=== PATIENT | male | born 1980 | race Caucasian/White ===

== ENCOUNTER 2020-08-28 02:39 | Emergency (ER) | payer OTHER ==
[2020-08-28 03:00] LABS: HEMOGLOBIN 16.8 gm/dl (14.0-17.5); RED BLOOD COUNT 5.29 M/UL (4.20-5.50); WHITE BLOOD COUNT 11.8 K/UL (4.5-11.0)
[2020-08-28 03:29] LABS: BUN/CREATININE RATIO 14 (0-10)
[2020-08-28] MEDS ORDERED: CEPHALEXIN500 M1 PO (05:53)
[2020-08-28] MEDS ORDERED: HYDROCODON-ACE1 EAC4 PO (05:53)
== END 2020-08-28 06:07 | disposition home or self-care (01) ==
LOC: ER1 02:39
PROVIDERS: Student in an Organized Health Care Education/Training Program
DX: S31.139A Puncture wound of abdominal wall without foreign body, unspecified quadrant without penetration into peritoneal cavity, initial encounter (principal); S81.832A Puncture wound without foreign body, left lower leg, initial encounter; F17.200 Nicotine dependence, unspecified, uncomplicated; Z23 Encounter for immunization; W34.00XA Accidental discharge from unspecified firearms or gun, initial encounter
CPT/HCPCS: 71045; 71260; 73700; 74018; 80053; 80307; 81001; 83605; 85025; 85610; 85730; 86850; 86900; 86901; 90471; 90715; 96374; 96375; 99285; G0480; J0690; J1170; J2270; Q9967

== ENCOUNTER 2020-09-05 13:51 | Emergency (ER) | payer OTHER ==
[~2020-09-05 13:51] MED LIST: CEPHALEXIN500 M1 PO; HYDROCODON-ACE1 EAC4 PO
[2020-09-05] MEDS ORDERED: TORADOL 10 MG T10 MG PO (15:47)
[2020-09-05] MEDS ORDERED: BACTROBAN OINT22 GM EXT (15:47)
== END 2020-09-05 16:02 | disposition home or self-care (01) ==
LOC: ER1 13:51
DX: Z48.817 Encounter for surgical aftercare following surgery on the skin and subcutaneous tissue (principal); F17.210 Nicotine dependence, cigarettes, uncomplicated; Z79.899 Other long term (current) drug therapy
CPT/HCPCS: 96372; 99283; J1885